=== PATIENT | female | born 1990 | race African-American/Black ===

== ENCOUNTER 2021-11-26 18:00 | Observation (INO) | payer OTHER, SELFPAY ==
[2021-11-26 18:03] VITALS: BMI 27.7
[2021-11-26] MEDS ORDERED: Morphine 4 MG/ML VIAL ONE (18:12)
[2021-11-26] MEDS ORDERED: Senokot S 8.6-50 MG TAB PO PRN (18:43)
[2021-11-26] MEDS ORDERED: Ondansetron PF 4 MG/2 ML Vial IVP PRN (18:43)
[2021-11-26] MEDS ORDERED: Acetaminophen 325 MG TAB PO PRN (18:43)
[2021-11-26] MEDS ORDERED: Cyclobenzaprine 10 MG TAB PO PRN (18:43)
[2021-11-26] MEDS ORDERED: Ondansetron ODT 4 MG TAB PO PRN (18:43)
[2021-11-26] MEDS ORDERED: FLU VACC QS2021-22(6MOS UP)/PF 60 MCG/0.5 ML SYRINGE IM ONE (19:00)
[2021-11-26] MEDS ORDERED: Lactated Ringer's 1,000 ML IV SCH (19:00)
[2021-11-26] MEDS ORDERED: Morphine 4 MG/ML VIAL SLOW IVP PRN (19:07)
[2021-11-26] MEDS: cefTRIAXone\\ROCEPHIN 1 GM in Sodium Chloride 0.9% 100 ML IVPB SCH (21:00)
[2021-11-26] MEDS: metroNIDAZOLE 500 MG in Premix Bag 1 BAG IVPB SCH (22:27)
[2021-11-27] MEDS: Ketorolac Tromethamine 30 MG/ML VIAL IVP SCH ×5 (00:11→22:46)
[2021-11-27 05:06] LABS: #Eosinphils 0.2 10x3/uL (0.0-0.5); #Monocytes 1.2 10x3/uL (0.0-1.1); #Neutrophils 8.4 10x3/uL (1.5-8.4); %Basophils 0.4 % (0.0-2.0); %Eosinophils 1.5 % (0.0-6.0); %Lymphocytes 12.3 % (18.0-47.0); %Monocytes 10.5 % (0.0-10.0); %Neutrophils 74.6 % (40.0-75.0); Hemoglobin 11.7 g/dL (12.0-15.5); Mean Corpuscular HGB CONC 32.9 g/dL (32.0-36.0); Mean Corpuscular Hemoglobin 29.3 pg (27.0-33.0); Mean Platelet Volume 9.1 fl (7.4-10.4); Platelet Count 344 10x3/uL (150-450); RBC Distribution Width 12.6 % (11.5-14.5); White Blood Cell (WBC) Count 11.2 10x3/uL (3.5-10.5)
[2021-11-27 05:19] LABS: Anion Gap 13 mmol/L (10-20); BUN (Urea Nitrogen) 10 mg/dL (7.0-18.7); Calc. Creatinine Clearance 128 mL/min (70-130); Carbon Dioxide 25 mmol/L (22-29); Chloride 102 mmol/L (98-107); Glucose 103 mg/dL (70-105); Potassium 3.7 mmol/L (3.5-5.1); Sodium 136 mmol/L (136-145)
[2021-11-27] MEDS: metroNIDAZOLE 500 MG in Premix Bag 1 BAG IVPB SCH ×2 (10:13→20:13)
[2021-11-27] MEDS: cefTRIAXone\\ROCEPHIN 1 GM in Sodium Chloride 0.9% 100 ML IVPB SCH (19:25)
[2021-11-28] MEDS: Ketorolac Tromethamine 30 MG/ML VIAL IVP SCH ×2 (05:20→05:24)
[2021-11-28 07:50] VITALS: BP 113/68; TEMP 98.3
== END 2021-11-28 08:10 | disposition home or self-care (01) ==
LOC: CSHPED 18:00
PROVIDERS: ADMIT Obstetrics & Gynecology; ATTEND Obstetrics & Gynecology
DX: N73.0 Acute parametritis and pelvic cellulitis (principal); N70.03 Acute salpingitis and oophoritis; N39.0 Urinary tract infection, site not specified; F17.200 Nicotine dependence, unspecified, uncomplicated
CPT/HCPCS: 36415; 80048; 85025; 96374; 96375; 96376; G0378; J0696; J1885; J2270; J3490; J7120